=== PATIENT | female | born 1965 | race Caucasian/White ===

== ENCOUNTER 2021-02-27 10:54 | Emergency (ER) | payer OTHER, BC ==
[2021-02-27 11:30] VITALS: BP 104/67; PULSE 73; BMI 34.9
== END 2021-02-27 12:10 | disposition home or self-care (01) ==
LOC: JERFT 10:54
DX: H01.001 Unspecified blepharitis right upper eyelid (principal); H01.011 Ulcerative blepharitis right upper eyelid
CPT/HCPCS: 99282-25

== ENCOUNTER 2021-11-03 19:36 | Emergency (ER) | payer BC, OTHER ==
[2021-11-03 19:50] VITALS: BP 109/65; PULSE 70; TEMP 97.8; BMI 34.9
[2021-11-03] MEDS ORDERED: diazePAM 5 MG TABLET PO ONE (21:11)
[2021-11-03] MEDS ORDERED: LIDOCAINE 5% TOPICAL PATCH TP ONE (21:11)
[2021-11-03] MEDS ORDERED: ACETAMINOPHEN 500 MG TABLET (FP) PO ONE (21:12)
[2021-11-03] MEDS ORDERED: diazePAM 5 MG TABLET ONE (21:22)
[2021-11-03] MEDS ORDERED: LIDOCAINE 5% TOPICAL PATCH ONE (21:22)
[2021-11-03] MEDS ORDERED: ACETAMINOPHEN 500 MG TABLET (FP) ONE (21:23)
[2021-11-03] MEDS ORDERED: HYDROmorphone HCL 2 MG TABLET PO ONE (21:23)
[2021-11-03] MEDS ORDERED: HYDROmorphone HCL 2 MG TABLET ONE (21:24)
[2021-11-03] MEDS ORDERED: LIDOCAINE PATCH REMOVAL MC ONE (22:00)
== END 2021-11-03 22:06 | disposition home or self-care (01) ==
LOC: JER 19:36 → JERFT 19:36
DX: M54.31 Sciatica, right side (principal)
CPT/HCPCS: 99283-25